=== PATIENT | male | born 1955 | race Caucasian/White ===

== ENCOUNTER 2018-01-12 15:22 | Emergency (ER) | payer MEDICARE, OTHER ==
[2018-01-12] MEDS ORDERED: Sodium Chloride 0.9% 1000 ML 1,000 ML ONE (15:29)
[2018-01-12] MEDS ORDERED: EPINEPHRINE ABBOJECT 1 MG ONE (15:54)
--- NOTE | 2018-01-12 16:02 | ERPHSYRPT ---
- History of Present Illness Time Seen by Provider: 01/12/18 15:23 Source: family Exam Limitations: clinical condition (patient is unable to speak when I enter the room) Physician History: This is a 64-year-old white male with history of COPD who brought by his girlfriend with complaint of severe shortness of breath. According to the the patient patient's girlfriend he suddenly slumped forward began having problems breathing she managed to get him to the emergency room. On arrival patient was noted to have any difficulty breathing initially the was able to get out a few words to the medics and nurses however on my entering the room patient is unable to speak he is somewhat dusky in color he initially had a pulse. At approximately 1523 he became unresponsive but still had a pulse bag ventilation was begun patient at 1526 compressions were started Interosseous line was placed in the patient's left tibia. Patient was given epinephrine at 1532 at that time he was noted to be asystole on the monitor. CPR was continued and patient was intubated at 1534. Patient was noted to have a PE a on the monitor he was given ACLS protocol with a total of 4 doses of epinephrine. Patient did not respond to ACLS protocol despite intubation, IV normal saline, 4 doses of epinephrine,. And ventilation through the ET tube as well as CPR. And so at 1547 resuscitative efforts were stopped. Patient with pupils fixed and dilated, absent corneal reflex, no response to pain no pulse Timing/Duration: today ( states patient collapsed just prior to arrival) Severity: severe Modifying Factors: Improves With: other Associated Symptoms: other - Review of Systems All Other Systems: Unable due to condition (unable to obtain review of systems from patient patient's girlfriend states he suddenly collapsed and complained of shortness of breath) - Past Medical History Respiratory History: COPD (History of severe COPD) - Social History Smoking Status: Current every day smoker (patient's family doctor states patient was a heavy smoker.) - Nursing Vital Signs Nursing Vital Signs: Initial Vital Signs Respiratory Rate 42 H 01/12/18 16:26 O2 Sat by Pulse Oximetry 64 L 01/12/18 16:26 - Course Nursing assessment & vital signs reviewed: Yes Rhythm Strip: Asystole ( patient's rhythm initially asystole then PEA) Ordered Tests: Active Orders 24 hr Category Date Time Status Intubation [Ventilator Management] STAT RT 01/12/18 16:50 Active Medication Summary Discontinued Medications Generic Name Dose Route Start Last Admin Trade Name Agustin PRN Reason Stop Dose Admin Epinephrine HCl 4 mg 01/12/18 15:54 Epinephrine Abboject 1 Mg .ROUTE 01/12/18 15:55 .STK-MED ONE Sodium Chloride Confirm 01/12/18 15:29 Sodium Chloride 0.9% 1000 Ml Administered 01/12/18 15:30 Dose 1,000 mls @ ud .ROUTE .STK-MED ONE - Progress Progress: unchanged (this) Progress Note: 01/12/18 16:07 This is a 64-year-old white male with a history of COPD and apparently heavy smoking. He was brought by his girlfriend with complaint of sudden collapse and severe shortness of breath. Patient was placed in a room by the nurses and medics he was able to utter a few words but as I entered the room patient was not able to speak he was dusky in color. Oxygen was applied to the patient he initially had a pulse. He then became unresponsive bag ventilation was begun. Respiratory was paged patient shortly thereafter became pulseless CPR was begun, Patient was noted to have asystole on monitor patient was given epinephrine through interosseous which was placed in the patient's left proximal tibia here in the emergency room. Patient was intubated by respiratory. Patient with bilateral breath sounds with ventilation through the endotracheal tube. Patient then was noted to be in PEA, resuscitative efforts as per ACLS protocol was continued patient was also given IV normal saline, Patient received a total of 4 doses of epinephrine 1 mg IV,, Patient's arrival time 1522 patient became unresponsive 1523, depressions were begun 1526 patient was intubated at 1534, Because of no response to resuscitative efforts code was discontinued at 1543, After discontinuation of resuscitative efforts pupils were fixed and dilated, absent corneal reflex. Patient had no respiratory effort, Patient had absent pulse, There was no response to pain group supervisor yard briefly contacted Dr. Marie who was not on-call he did state that the patient had a history of severe COPD and was a heavy smoker. I contacted Dr. Rivera who is on-call for the patient's doctor Dr. Marie. I explained the patient's clinical course and the fact that he had . She states that she will sign the certificate. - Departure Time of Disposition: 16:00 Departure Disposition: Clinical Impression: cardiac and respiratory arrest Condition: Critical Care Time: No
[2018-01-12 16:35] VITALS: O2SAT 64
== END 2018-01-12 18:08 | disposition expired ==
LOC: MERGE 15:22 → EDBD 15:22 → ED 15:22
DX: I46.9 Cardiac arrest, cause unspecified (principal); J44.9 Chronic obstructive pulmonary disease, unspecified; F17.200 Nicotine dependence, unspecified, uncomplicated
CPT/HCPCS: 31500; 36000; 94799; 96360; 96374; 99283; 99284; 99291; J0171